=== PATIENT | female | born 1955 | race Caucasian/White ===

== ENCOUNTER → 2017-04-19 12:11 | Day surgery (SDC) | payer BC ==
--- NOTE | 2017-04-15 16:34 | HP ---
PREOPERATIVE HISTORY AND PHYSICAL: DATE OF ADMISSION: 04/19/17 PROVIDER: Dr. Jc Ordaz * (DICTATED BY ANJUM VILLAGOMEZ) CHIEF COMPLAINT: Left ankle wound. HISTORY OF PRESENT ILLNESS: Chelita is a 61-year-old female, who sustained a fracture to her left ankle in early November of 2016. She was treated at [facility] with open reduction and internal fixation. She underwent subsequent hardware screw replacement in January and has had wound breakdown over the plate. Since that time, she has been followed by Dr. Canales at [place] and has been on a PICC line for 5 weeks. The plate is exposed through the skin with no chance of healing with the plate currently intact. She is interested in surgical intervention at this point. She denies any recent fevers or chills. PAST MEDICAL HISTORY: Depression and anxiety. PAST SURGICAL HISTORY: x2. She reports a spinal headache only with the anesthesia. CURRENT MEDICATIONS: 1. Multivitamin daily. 2. Aleve as needed for pain. She is not on any antibiotics currently. ALLERGIES: No known drug allergies. SOCIAL HISTORY: She does not work. She smokes half a pack of cigarettes per day. She admits to 2 glasses of wine 3 to 4 times per week. REVIEW OF SYSTEMS: A 14-point review of systems was discussed with the patient at today's visit. Positive for recent fatigue, depression, and anxiety. All other systems were negative. PHYSICAL EXAMINATION GENERAL: She is a well-developed, well-nourished, thin female, in no acute distress at rest. She is alert and oriented x3 with appropriate mood and affect. VITAL SIGNS: The patient is 5 feet 4 inches, 102 pounds, blood pressure 142/80 , pulse of 82, respirations 14, temperature 97.4. HEENT: Normocephalic/atraumatic. Hearing and vision are grossly intact. NECK: Trachea is midline. RESPIRATORY: Lungs are clear to auscultation bilaterally. No wheezes, rales, or rhonchi. CARDIOVASCULAR: Regular rate and rhythm. No murmurs, rubs, or gallops. Normal S1, S2. ABDOMEN: Soft, nondistended, nontender. Normal bowel sounds. EXTREMITIES: Exam of the left lower extremity, the patient has a 2 cm x 1 cm wide wound that has dehisced over the lateral fibular plate. The plate is clearly visible under the skin. There is some surrounding erythema. There is no current drainage from the wound. There is no significant swelling throughout the ankle. She is able to dorsiflex and plantar flex the ankle without significant discomfort. Sensation to light touch is intact. She has a normal vascular exam. DIAGNOSTIC STUDIES: Imaging: Three views of the left ankle were obtained in the office today and show a well-healed medial and lateral malleolus fracture with hardware intact. IMPRESSION: Left ankle wound dehiscence. PLAN: The patient is to undergo left ankle hardware removal with irrigation and debridement and wound VAC placement. The risks, benefits, and postoperative course were discussed with the patient at length and she would like to proceed. A prescription for oxycodone was sent to her pharmacy for postoperative pain. All of her questions were answered to her full satisfaction. She is understanding to call if she develops any problems or concerns. ANJUM VILLAGOMEZ [id number]/[facility] #: [id number] JOHNSON
[~2017-04-19 12:11] MED LIST: Buffered Lidocaine 0.9% SYRIN* 5 ML/SYR SYRINGE INTRADERM ONE; Buffered Lidocaine 0.9% SYRIN* 5 ML/SYR SYRINGE ONE; Bupivacaine 0.5% SDV PF* 10-30ML VIAL ONE; Dexamethasone IV* 4 MG/ML 1 ML (4 MG) ONE; EPHEDrine (Pressors)* 50 MG/ML VIAL ONE; Famotidine IV* 10 MG/ML 2 ML (20 mg) IV ONE; Famotidine IV* 10 MG/ML 2 ML (20 mg) ONE; KETAMINE HCL* 50 MG/ML 10 ML VIAL ONE; Ketorolac INJ* 30 MG/ML 1 ML VIAL ONE; Lidocaine 2% PF * 5 ML VIAL ONE; Metoclopramide TAB* 10 MG ONE; Metoclopramide TAB* 10 MG PO ONE; Midazolam* 1 MG/ML 10 ML VIAL (10 MG) ONE; Naloxone* 0.4 MG/ML 1 ML VIAL IV PRN; Ondansetron INJ* 2 MG/ML VIAL IV PRN; Ondansetron INJ* 2 MG/ML VIAL ONE; Propofol* 10 MG/ML 20 ML BTL IV PUSH ONE; ceFAZolin 2 GM PREMIX (*) 2 GM/50 ML BAG IVPB ONE; fentaNYL* 50 MCG/ML 2 ML VIAL (100 MCG VIAL) IV PRN; fentaNYL* 50 MCG/ML 2 ML VIAL (100 MCG VIAL) ONE; oxyCODONE TAB* 5 MG TAB ONE; oxyCODONE/Acetamin 5/325 MG* TAB PO PRN
[2017-04-19 16:42] VITALS: BP 108/64
--- NOTE | 2017-04-20 13:34 | OP ---
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 OPERATIVE PROCEDURE: Left fibular plate removal, debridement of lateral fibula , deep cultures, secondary wound closure with VAC dressing. DESCRIPTION OF PROCEDURE: The patient was taken to the operating room where a longitudinal incision was made along the distal fibula, the plate was easily visualized and was exposed preoperatively for 2 to 3 cm of its length. We removed the plate with the appropriate screw otr tanker truck driver and we used a power bur to remove fibrous tissue and necrotic lateral bone lay underneath the plate. 6 L of irrigation was performed as well as local cultures taken. We then undermined the skin flaps after debriding them back to sharp edges. We were able to close the wound with interrupted 2-0 Prolene vertical mattress sutures. A VAC dressing was placed over the wound and then we wrapped with a Kerlix dressing. [id number]/[facility] #: [id number] [facility]Rich
== END | disposition home or self-care (01) ==
LOC: OR 12:11
PROVIDERS: ATTEND Orthopaedic Surgery
DX: T81.31XA Disruption of external operation (surgical) wound, not elsewhere classified, initial encounter (principal); Y83.1 Surgical operation with implant of artificial internal device as the cause of abnormal reaction of the patient, or of later complication, without mention of misadventure at the time of the procedure; F41.8 Other specified anxiety disorders; F17.210 Nicotine dependence, cigarettes, uncomplicated
CPT/HCPCS: 87070; 87073; 87077; 87186; 87205; 88300; A9270-GY; J0690; J1100; J1885; J2250; J2405; J2704; J3010